=== PATIENT | male | born 1945 | race Caucasian/White ===

== ENCOUNTER 2017-03-26 03:19 | Inpatient (IN) | payer BC ==
[~2017-03-26] VITALS: Ht 180.3 cm; Wt 95.7 kg
[2017-03-26] MEDS ORDERED: ASPIRIN 81 MG TAB.CHEW PO ONE (03:45)
[2017-03-26] MEDS ORDERED: NITROGLYCERIN SUBLINGUAL 0.4 MG BOTTLE OF 25. SL PRN ×2 (03:45→04:45)
[2017-03-26 03:51] LABS: BASO # 0.1 x10^3/uL (0.0-0.2); BASO % 1 % (0-3); EOS # 0.2 x10^3/uL (0.0-0.7); EOS % 3 % (0-3); HEMATOCRIT 47.8 % (39.0-53.0); HEMOGLOBIN 16.1 g/dL (13.0-17.5); LYMPH # 2.3 x10^3/uL (1.0-4.8); LYMPH % 30 % (24-48); MEAN CORPUSCULAR HEMOGLOBIN 30 pg (25-35); MEAN CORPUSCULAR HGB CONC 34 g/dL (31-37); MEAN CORPUSCULAR VOLUME 89 fL (79-100); MONO # 0.5 x10^3/uL (0.0-1.1); MONO % 6 % (0-9); NEUT # 4.5 x10^3uL (1.8-7.7); NEUT % 60 % (31-73); PLATELET COUNT 140 x10^3/uL (140-400); RED BLOOD COUNT 5.35 x10^6/uL (4.30-5.70); WHITE BLOOD COUNT 7.6 x10^3/uL (4.0-11.0)
[2017-03-26 04:02] LABS: ALBUMIN 3.8 g/dL (3.4-5.0); CALCIUM 8.5 mg/dL (8.5-10.1); CREATININE 1.3 mg/dL (0.7-1.3); GFR 54.7; POTASSIUM 3.7 mmol/L (3.5-5.1); TOTAL BILIRUBIN 0.6 mg/dL (0.2-1.0); TOTAL PROTEIN 7.6 g/dL (6.4-8.2)
[2017-03-26] MEDS ORDERED: MORPHINE SULFATE 2 MG/ML DISP.SYRIN. IV PRN (04:45)
[2017-03-26] MEDS ORDERED: ACETAMINOPHEN 325 MG TABLET PO PRN (04:45)
[2017-03-26] MEDS ORDERED: ONDANSETRON PF 4 MG/2 ML VIAL. IV PRN (04:45)
--- NOTE | 2017-03-26 05:13 | PHYS DOC ---
Past History Past Medical History: High Cholesterol, Heart Disease, Hypertension, SC Past Surgical History: Other Alcohol Use: Occasionally Drug Use: None Adult General Chief Complaint Chief Complaint: CHEST PAIN HPI HPI Patient is a 71-year-old gentleman with history significant for hypertension, coronary disease, bypass surgery, asthma who presents here today complaining of midsternal chest pressure that started approximately 1 hour and half prior to arrival to the ER. Patient denies any history of strokes, cancer, diabetes, liver, kidney problems. Patient reports he does have a pacemaker in place. Patient denies any other abdominal or chest surgeries. Patient does not smoke drink or do any drugs. Patient reports he has an adverse reaction to codeine. Patient reports he had no shortness of breath or diaphoresis. Patient had a radiating pain nausea vomiting or diarrhea. Patient had any fevers shakes chills cough cold or rhinorrhea. Patient had a dysuria or frequency or urgency. Patient reports no change with exertion or rest. Patient reports no change with inspiration. 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 Pulido. Patient's physical exam the ED was unremarkable. He was alert awake oriented 3. Heart was regular rate and rhythm. Lungs were clear without any wheezing rales or rhonchi. Patient has no repeatable tenderness to palpation to his anterior chest wall. Review of systems: Constitutional: Denies fever or chills Eyes: Denies change in visual acuity, redness, or eye pain HENT: Denies nasal congestion or sore throat All other review systems are negative except as documented in the history of present illness portion. Physical exam: Constitutional: Well developed, well nourished, no acute distress, non-toxic appearance. HENT: Normocephalic, atraumatic, bilateral external ears normal, nose normal. Eyes: EOMI, conjunctiva normal, no discharge. Neck: Normal range of motion, no tenderness, supple, no stridor. Cardiovascular:Heart rate regular rhythm Lungs & Thorax: Bilateral breath sounds clear to auscultation no respiratory distress Abdomen: Bowel sounds normal, soft, no tenderness, no masses, no pulsatile masses. Skin: Warm, dry, no erythema, no rash. Back: No tenderness, no CVA tenderness. Extremities: No tenderness, no cyanosis, no clubbing, ROM intact, no edema. Neurologic: Alert and oriented X 3, normal motor function, normal sensory function, no focal deficits noted. Psychologic: Affect normal, judgement normal, mood normal. EKG reveals a paced rhythm with nonspecific ST-T wave abnormalities. No old EKGs to compare with. Chest x-ray no infiltrates or effusions. Learning of the left heart border likely secondary to technique. Assessment and plan 71-year-old gentleman who presents here today with nonspecific midsternal chest pressure that woke him up from sleep. Patient's ER workup so far has been unremarkable. Given the patient's significant risk factors of prior coronary disease, bypass surgery, patient will be admitted. Ruled out for cardiac etiology of his discomfort. Patient's pain did improve with the nitroglycerin here in the ED however he reports it did make him feel a little bit flushed. Patient is remained clinically and hemodynamically stable throughout his ED stay. We'll admit to telemetry. Current Medications Current Medications Current Medications Medications (Trade) Dose Ordered Sig/Sherley Start Time Stop Time Status Last Admin Dose Admin Acetaminophen (Tylenol) 650 mg PRN Q4HRS PRN 03/26/17 04:45 03/27/17 04:44 Aspirin (Children'S Aspirin) 324 mg 1X ONCE 03/26/17 03:45 03/26/17 04:09 DC 03/26/17 04:08 324 MG Morphine Sulfate (Morphine 2mg Syringe) 2 mg PRN Q2HR PRN 03/26/17 04:45 03/27/17 04:44 Nitroglycerin (Nitrostat) 0.4 mg PRN Q5MIN PRN 03/26/17 04:45 03/27/17 04:44 Ondansetron HCl (Zofran) 4 mg PRN Q4HRS PRN 03/26/17 04:45 03/27/17 04:44 Allergies Allergies Allergies Coded Allergies Type Severity Reaction Last Updated Verified No Known Allergies Allergy Unknown 03/26/17 Yes Current Patient Data Vital Signs Vital Signs Date Time Temp Pulse Resp B/P (MAP) Pulse Ox O2 Delivery O2 Flow Rate FiO2 03/26/17 04:58 66 20 112/72 (85) 96 Room Air 03/26/17 03:30 98.1 Lab Results Laboratory Tests Test 03/26/17 03:35 White Blood Count 7.6 x10^3/uL (4.0-11.0) Red Blood Count 5.35 x10^6/uL (4.30-5.70) Hemoglobin 16.1 g/dL (13.0-17.5) Hematocrit 47.8 % (39.0-53.0) Mean Corpuscular Volume 89 fL (79-100) Mean Corpuscular Hemoglobin 30 pg (25-35) Mean Corpuscular Hemoglobin Concent 34 g/dL (31-37) Red Cell Distribution Width 15.0 % (11.5-14.5) H Platelet Count 140 x10^3/uL (140-400) Neutrophils (%) (Auto) 60 % (31-73) Lymphocytes (%) (Auto) 30 % (24-48) Monocytes (%) (Auto) 6 % (0-9) Eosinophils (%) (Auto) 3 % (0-3) Basophils (%) (Auto) 1 % (0-3) Neutrophils # (Auto) 4.5 x10^3uL (1.8-7.7) Lymphocytes # (Auto) 2.3 x10^3/uL (1.0-4.8) Monocytes # (Auto) 0.5 x10^3/uL (0.0-1.1) Eosinophils # (Auto) 0.2 x10^3/uL (0.0-0.7) Basophils # (Auto) 0.1 x10^3/uL (0.0-0.2) Sodium Level 140 mmol/L (136-145) Potassium Level 3.7 mmol/L (3.5-5.1) Chloride Level 105 mmol/L (98-107) Carbon Dioxide Level 29 mmol/L (21-32) Anion Gap 6 (6-14) Blood Urea Nitrogen 20 mg/dL (8-26) Creatinine 1.3 mg/dL (0.7-1.3) Estimated GFR (Cockcroft-Gault) 54.7 BUN/Creatinine Ratio 15 (6-20) Glucose Level 128 mg/dL (70-99) H Calcium Level 8.5 mg/dL (8.5-10.1) Total Bilirubin 0.6 mg/dL (0.2-1.0) Aspartate Amino Transferase (AST) 17 U/L (15-37) Alanine Aminotransferase (ALT) 27 U/L (16-63) Alkaline Phosphatase 128 U/L (46-116) H Troponin I Quantitative < 0.017 ng/mL (0-0.055) Total Protein 7.6 g/dL (6.4-8.2) Albumin 3.8 g/dL (3.4-5.0) Albumin/Globulin Ratio 1.0 (1.0-1.7) EKG EKG [] Radiology/Procedures Radiology/Procedures [] Course & Med Decision Making Course & Med Decision Making Pertinent Labs and Imaging studies reviewed. (See chart for details) [] Dragon Disclaimer Dragon Disclaimer This chart was dictated in whole or in part using Voice Recognition software in a busy, high-work load, and often noisy Emergency Department environment. It may contain unintended and wholly unrecognized errors or omissions. Departure Departure: Impression: Primary Impression: Chest pain Additional Impression: Angina pectoris Disposition: ADMITTED INPATIENT Admitting Physician: Sandra Almeida Condition: STABLE Referrals: YAKELIN TIWARI MD (PCP) Problem Qualifiers AGUILAR BATEMAN MD Mar 26, 2017 05:13
--- NOTE | 2017-03-26 05:30 | EKG ---
[address] [address] Test Date: 2017-03-26 Test Time: 03:26:25 Pat Name: KEZIA BUNN Department: Room: 115 A Gender: M Woolen Suiting Shrinker: ESSENCE : 1945 Requested By: AGUILAR BATEMAN Order Number: [id number] Reading MD: Jon Garcia Measurements Intervals [place] Rate: 67 P: -24 TX: 240 QRS: -72 QRSD: 136 T: 41 QT: 424 QTc: 451 Interpretive Statements SINUS RHYTHM PROLONGED TX INTERVAL RBBB SEPTAL INFARCT INFERIOR INFARCT POOR R-WAVE PROGRESSION Electronically Signed On 03-26-2017 17:22:29 CDT by Jon Garcia
[2017-03-26 05:39] VITALS: BP 125/74
--- NOTE | 2017-03-26 07:14 | RAD ---
Portable chest, 03/26/2017: History: Chest pain Comparison is made to a study from 11/19/2009. There has been an interval median sternotomy. There appears to be a cardiac valvular prosthesis in place. A left-sided transvenous pacemaker remains in place with 2 leads extending into the right heart. The heart size and pulmonary vascularity are normal. No pulmonary infiltrates are seen. There is no evidence of pleural fluid. IMPRESSION: No acute cardiopulmonary abnormality is detected.
[2017-03-26 09:14] VITALS: BP 115/65
[2017-03-26] MEDS ORDERED: ALFU10TA3 PO (09:36)
[2017-03-26] MEDS ORDERED: OMEP40CA5 PO (09:36)
[2017-03-26] MEDS ORDERED: ATOR20TA58 PO (09:36)
[2017-03-26] MEDS ORDERED: HYDR12.53 PO (09:36)
[2017-03-26] MEDS ORDERED: ATORVASTATIN CALCIUM 20 MG TABLET PO SCH ×2 (10:00→21:00)
[2017-03-26] MEDS ORDERED: TAMSULOSIN 0.4 MG CAP.ER.24H. PO SCH ×2 (10:00→21:00)
[2017-03-26] MEDS ORDERED: PANTOPRAZOLE 40 MG TABLET. PO SCH ×2 (10:00→21:00)
[2017-03-26] MEDS ORDERED: hydroCHLOROthiazide 12.5 MG CAPSULE PO SCH (10:00)
[2017-03-26 11:45] VITALS: BP 129/83
[2017-03-26 14:51] VITALS: BP 129/78
--- NOTE | 2017-03-27 04:42 | ACF ---
Admission Criteria Forms ANGINA Clinical Indications for Admission to Inpatient Care (Place 'X' for any and all applicable criteria): Admission is indicated for suspected angina (e.g, chest pain pattern, angina- equivalent symptom, or other finding suggesting unstable angina) with ANY ONE of the following(1)(2)(3)(4)(5): [X]I. Angina needing acute intervention as indicated by ALL of the following ( 11)(12): [X]a) Unstable angina is present as indicated by angina that is ANY ONE of the following: [ ]i) New onset [ ]ii) Nocturnal [ ]iii) Prolonged at rest [X]iv) Progressive [X]b) Angina warrants acute intervention as indicated by ANY ONE of the following: [ ]i) Recurrent angina (e.g, not responding as previously to treatment) [ ]ii) Angina at rest or with low-level activities despite initial medical therapy [ ]iii) New or presumably new ST-segment depression on ECG [ ]iv) Signs or symptoms of heart failure (eg, dyspnea, pulmonary edema) [ ]v) New or worsening mitral regurgitation [ ]vi) Hemodynamic instability [ ]vii) Dangerous arrhythmia (eg, sustained ventricular tachycardia) [ ]viii) History of percutaneous coronary intervention within 6 months [X]ix) History of coronary artery bypass graft surgery [ ]x) GELY risk score of 2 or greater[A] [ ]xi) History of Diabetes(14) [ ]xii) High-risk cardiac ischemia findings on noninvasive testing (e.g, echocardiogram, treadmill testing, nuclear scan) [ ]xiii) Chronic renal insufficiency (ie, estimated GFR less than 60 mL/min/1.732m) [ ]xiv) Left ventricular ejection fraction less than 40% [ ]II. Evidence of CA (e.g, cardiac biomarkers positive, ST-segment elevation on ECG). Also use Myocardial Infarction. Extended stay beyond goal length of stay may be needed for (1)(26): [ ]a) Intravascular procedural complications such as acute vessel closure, stent malposition, or vessel dissection(27) [ ]b) Extravascular procedural complications such as retroperitoneal hematoma, pericardial effusion, or cardiac tamponade [ ]c) Entry site complications causing bleeding, hematoma, or distal ischemia and requiring ongoing monitoring, surgical repair, or surgical thrombectomy(28) [ ]d) Heart failure [ ]e) Dangerous arrhythmia [ ]f) Hemodynamic instability with persisting symptoms after intensive medical management, or recurring severe prolonged symptoms [ ]g) Postprocedural myocardial infarction or acute renal failure The original [facility] [employer] content created by [facility] has been revised. The portions of the content which have been revised are identified through the use of italic text or in bold, and [facility] (formerly [facility]) has neither reviewed nor approved the modified material. All other unmodified content is copyright [facility]. Please see references footnoted in the original [facility] edition 2016 Admission Criteria Met?: Yes AMIRAH BRANNON Mar 27, 2017 04:42
--- NOTE | 2017-03-27 10:46 | SSS ---
ADMIT DATE: 03/26/2017 The stay was greater than 8 hours and less than 24 hours and primary care was administered by myself. CONSULTANTS: Dr. Garcia. DISCHARGE DIAGNOSES: 1. Chest pain -- noncardiac, myocardial infarction ruled out. 2. Bioprosthetic aortic valve. 3. Hiatal hernia. 4. Intermittent cigar use. 5. BPH. HISTORY OF PRESENT ILLNESS: This is a 71-year-old male who woke up at 3:00 in the morning on 03/26/2017 complaining of it felt like an animal sitting on his chest. Denied any sweating or radiation. He took 1 nitroglycerin, did give him some relief, but came to the Emergency Room. PAST MEDICAL HISTORY: Negative for coronary artery disease. He had a hiatal hernia, bioprosthetic pig valve. ALLERGIES: None. MEDICATIONS: One baby aspirin a day, on statin, fish oil, and omeprazole for his hiatal hernia. FAMILY HISTORY: Father had coronary artery disease; grandfather, lung cancer; mother is still alive at 86, health is fairly good. HABITS: Cigar every couple of weeks, beer every other day. 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 PAST SURGICAL HISTORY: Aortic valve replaced in 2015 and cardiac catheterization in 2015. REVIEW OF SYSTEMS: As per HPI, otherwise negative. PHYSICAL EXAMINATION: VITAL SIGNS: Blood pressure 129/78, pulse 65, temperature 97.5, respiratory rate 21, pulse ox is 95% on room air. HEENT: The patient's hearing is normal. His eyes are clear. Nose is patent. Throat was clear. NECK: Supple, without adenopathy. There are no carotid bruits. LUNGS: Clear to auscultation. CARDIOVASCULAR: Regular rhythm and rate with crisp S1, S2. ABDOMEN: Soft, nontender. EXTREMITIES: Without edema. LABORATORY DATA: Troponins are negative. Chemistry, essentially normal. EKG per Dr. Garcia. There is no acute ST elevation or depression. ASSESSMENT: As above. PLAN: Follow up with her regular cream dumper, Dr. Wall. ML CARTER DO DR: MALU/dawn JOB#: [id number] / [id number]
--- NOTE | 2017-03-27 13:43 | PDOC ---
PROVIDER NOTE PROVIDER NOTE PROVIDER NOTE Cardiology consultation note Reason for consultation chest pain 71-year-old male presenting with atypical chest pain. She reported some pressure -like sensation at the level of the epigastrium lasting several minutes. There were no significant alleviating or gasping factors. Patient attributed initially to the previous hiatal hernia and after arrival to the ER did not have any significant relief with nitroglycerin. He was previous evaluated with a left heart catheterization approximately 1.5 years ago and was advised that he does not have any significant obstructive disease. He denies any current chest pain, orthopnea, PND or lower extremity edema. He has excellent functional capacity. Past medical history: 1. Bicuspid aortic valve status post replacement 2. Status post pacemaker for sick sinus syndrome 3. Hypertension Social history: Patient is and denies any alcohol, tobacco or illicit drug use. famhx: NC No known drug allergies Review of systems negative for 10 out of 14 systems reviewed unless otherwise mentioned above in history of present illness. HEENT: NC/AT Cardiovascular: Normal heart sounds Respiratory: Normal breath sounds Abdomen: Soft, nontender, normal bowel sounds EXT: No edema. Mental Status: Alert, oriented X 3 VSS Labs Negative enzymes Impression: 1. Atypical chest pain RECS: 1. Patient follows closely with [facility]. His EKG, enzymes and symptoms are of a low risk nature. Furthermore he's had a cardiac catheterization within the last 2 years which was unremarkable. Given this would advise close outpatient follow-up with his primary banana loader through . Thank you for this consultation. ENRIQUE MARTÍNEZ MD Mar 27, 2017 13:43
== END 2017-03-26 17:54 | disposition home or self-care (01) | DRG 206 ==
LOC: ER 03:19 → 1 SOUTH 05:09
PROVIDERS: ADMIT Internal Medicine; ATTEND Internal Medicine
DX: M94.0 Chondrocostal junction syndrome [Tietze] (principal); I10 Essential (primary) hypertension; I25.119 Atherosclerotic heart disease of native coronary artery with unspecified angina pectoris; E78.00 Pure hypercholesterolemia, unspecified; J45.909 Unspecified asthma, uncomplicated; I25.2 Old myocardial infarction; Z95.1 Presence of aortocoronary bypass graft; Z95.0 Presence of cardiac pacemaker; N40.0 Benign prostatic hyperplasia without lower urinary tract symptoms; Z95.2 Presence of prosthetic heart valve
CPT/HCPCS: 36415; 71010; 80053; 82947; 84484; 85025; 93005; 99285-25

== ENCOUNTER 2020-02-05 07:36 | Emergency (ER) | payer MEDICARE ==
[~2020-02-05] VITALS: Ht 180.3 cm; Wt 97.7 kg
[~2020-02-05 07:36] MED LIST: ALFU10TA4 PO; ATOR20TA58 PO; HYDR12.572 PO; OMEP40CA45 PO
[2020-02-05] MEDS ORDERED: GABA300C8 PO (07:57)
[2020-02-05] MEDS ORDERED: NINT150C PO (07:57)
[2020-02-05] MEDS ORDERED: FLUT1BLS10 IH (07:57)
--- NOTE | 2020-02-05 07:59 | PHYS DOC ---
Past History Past Medical History: High Cholesterol Additional Past Medical Histor: Pulmonary fibrosis, Open heart-valve replacement Past Surgical History: Other Additional Past Surgical Histo: valve replacement-bioprosthetic aortic valve Smoking: Quit Greater Than 1 Year Alcohol Use: Occasionally Drug Use: None General Adult EDM: Chief Complaint: CHEST PAIN HPI: HPI: Patient is a 74-year-old male who presents to the emergency department for evaluation. He states he awoke this morning with the discomfort in his lower chest/epigastric region. Described the pain as an achy pain. The pain does not radiate. It is not associated with shortness of breath, and is actually improved by exertion and walking around. He has not had any nausea or vomiting, diaphoresis, cough, or any other associated symptoms. There are no alleviating or exacerbating factors to his symptoms. He does have a history of a valve replacement and a pacemaker, but no history of coronary disease. Review of Systems: Review of Systems: Constitutional: Denies fever or chills Eyes: Denies change in visual acuity HENT: Denies nasal congestion or sore throat Respiratory: Denies cough or shortness of breath Cardiovascular: As per HPI GI: Denies nausea, vomiting, bloody stools or diarrhea : Denies dysuria Musculoskeletal: Denies back pain or joint pain Integument: Denies rash Neurologic: Denies headache, focal weakness or sensory changes Endocrine: Denies polyuria or polydipsia Lymphatic: Denies swollen glands Psychiatric: Denies depression or anxiety Heart Score: HEART Score for Chest Pain: HEART Score for Chest Pain Response (Comments) Value History Slighlty/Non-Suspicious 0 ECG Nonspecific Repolarizatio 1 Age > 65 2 Risk Factors 1 or 2 Risk Factors 1 Troponin < Normal Limit 0 Total 4 Risk Factors: Risk Factors: DM, Current or recent (<one month) smoker, HTN, HLP, family history of CAD, obesity. Risk Scores: Score 0 - 3: 2.5% MACE over next 6 weeks - Discharge Home Score 4 - 6: 20.3% MACE over next 6 weeks - Admit for Clinical Observation Score 7 - 10: 72.7% MACE over next 6 weeks - Early Invasive Strategies Allergies: Allergies: Allergies Coded Allergies Type Severity Reaction Last Updated Verified No Known Allergies Allergy Unknown 03/26/17 Yes Physical Exam: PE: PHYSICAL EXAM: CONSTITUTIONAL: Well developed, well nourished HEAD: normocephalic, atraumatic EENT: PERRL, EOMI. Conjunctivae normal color, sclerae non-icteric; moist mucous membranes. NECK: Supple, non-tender; no meningismus. LUNGS: Lungs CTA, breathing even and unlabored. Normal air movement. HEART: Regular rate and rhythm, no murmur CHEST: No deformity; non-tender ABDOMEN: The abdomen is soft, there is mild diffuse epigastric tenderness to palpation without rebound or guarding, remainder the abdomen is soft and non- tender, no masses or bruits. EXTREM: Normal ROM; no deformity, no calf tenderness. Normal pulses palpable in all extremities. There is no pedal edema. SKIN: No rash; no diaphoresis NEURO: Alert; normal speech and cognition; CN's grossly intact; strength grossly intact without focal deficit. BACK: No CVA TTP. Current Patient Data: Labs: Laboratory Tests Test 02/05/20 07:55 White Blood Count 7.2 x10^3/uL Red Blood Count 5.04 x10^6/uL Hemoglobin 15.5 g/dL Hematocrit 45.9 % Mean Corpuscular Volume 91 fL Mean Corpuscular Hemoglobin 31 pg Mean Corpuscular Hemoglobin Concent 34 g/dL Red Cell Distribution Width 16.3 % Platelet Count 140 x10^3/uL Neutrophils (%) (Auto) 72 % Lymphocytes (%) (Auto) 14 % Monocytes (%) (Auto) 6 % Eosinophils (%) (Auto) 7 % Basophils (%) (Auto) 1 % Neutrophils # (Auto) 5.2 x10^3uL Lymphocytes # (Auto) 1.0 x10^3/uL Monocytes # (Auto) 0.4 x10^3/uL Eosinophils # (Auto) 0.5 x10^3/uL Basophils # (Auto) 0.0 x10^3/uL Sodium Level 138 mmol/L Potassium Level 3.8 mmol/L Chloride Level 103 mmol/L Carbon Dioxide Level 25 mmol/L Anion Gap 10 Blood Urea Nitrogen 23 mg/dL Creatinine 1.3 mg/dL Estimated GFR (Cockcroft-Gault) 54.3 BUN/Creatinine Ratio 18 Glucose Level 144 mg/dL Calcium Level 8.9 mg/dL Total Bilirubin 0.7 mg/dL Aspartate Amino Transf (AST/SGOT) 60 U/L Alanine Aminotransferase (ALT/SGPT) 90 U/L Alkaline Phosphatase 187 U/L Troponin I Quantitative < 0.017 ng/mL SB-[id number]-Type Natriuretic Peptide 119 pg/mL Total Protein 6.8 g/dL Albumin 3.5 g/dL Albumin/Globulin Ratio 1.1 Lipase 97 U/L Current Medications Medications (Trade) Dose Ordered Sig/Sherley Route PRN Reason Start Time Stop Time Status Last Admin Dose Admin Aspirin (Aspirin Chewable) 324 mg 1X ONCE PO 02/05/20 08:00 02/05/20 08:01 DC 02/05/20 07:54 Multi-Ingredient Mouthwash/Gargle (Gi Cocktail) 20 ml 1X ONCE PO 02/05/20 08:00 02/05/20 08:01 DC 02/05/20 08:14 Vital Signs: Vital Signs Date Time Temp Pulse Resp B/P (MAP) Pulse Ox O2 Delivery O2 Flow Rate FiO2 02/05/20 07:42 97.6 70 20 145/88 (107) 96 Room Air EKG: EKG: Probable atrial sensed ventricular paced rhythm at a rate of 84 bpm, left axis deviation, left anterior fascicular block, nonspecific intraventricular conduction delay without acute ischemic ST/T changes. There is T wave inversion in the lateral limb leads which is accentuated compared to the patient's prior EKG. Radiology/Procedures: Radiology/Procedures: PROCEDURE: PORTABLE CHEST 1V AP portable chest radiograph 02/05/2020 Clinical History: Chest pain. An AP erect portable digital radiograph of the chest was obtained. Comparison study is dated 03/26/2017. The patient is post cardiac valve replacement. A left-sided pacemaker is unchanged. The cardiac silhouette is mildly enlarged. The thoracic aorta is tortuous. No acute pulmonary infiltrate is seen. No pneumothorax or pleural effusion is noted. Degenerative changes are seen involving the thoracic spine along with both shoulders. Impression: No acute abnormality is seen.[] PROCEDURE: ABDOMEN LTD Examination: ABDOMEN LTD History: Reason: upper abd pain, LFT elevation, eval GB Comparison/Correlation: None Findings: Right upper quadrant ultrasound exam was performed. Exam is somewhat limited due to patient body habitus. Diffuse fatty infiltration of the liver is present. Portal venous flow is normal. Liver length is 16.8 cm. At least several calculi of varying sizes are present in the gallbladder. There is no pericholecystic fluid. There is no gallbladder wall thickening. Right kidney measures 11.37 x 4 cm x 5.20. No right hydronephrosis. Pancreas is obscured by bowel gas. Inferior vena cava is partially visualized and unremarkable. Common bile duct could not be delineated due to overlying bowel gas. Impression: Cholelithiasis. No findings of acute inflammation or biliary dilatation. Fatty infiltration of the liver. Course & Med Decision Making: Course & Med Decision Making Pertinent Labs and Imaging studies reviewed. (See chart for details) [] 10:15 AM: The patient's condition remained stable. He is feeling significantly better at this time. I had an extensive discussion with the patient about the limitations of ER cardiac evaluation in definitively ruling out acute coronary syndrome. We discussed limitation of the ER evaluation and a singe ED troponin in r/o AMI, and the risks involved in missed diagnosis of acute coronary syndrome including or permanent debility. I recommended overnight observation for further formal cardiac evaluation to rule out acute coronary syndrome. After expressing understanding of the limitations of ER cardiac evaluation, as well as the risks of missed diagnosis, the patient declined further cardiac evaluation at this time. The patient was mentally competent, and given opportunity to ask questions about the diagnosis and recommended plan of care. I stressed the importance of outpatient follow-up, and returning to the emergency department for new or worsening symptoms, or if the patient is agreeable to undergo further cardiac evaluation. Dragon Disclaimer: Dragon Disclaimer: This electronic medical record was generated, in whole or in part, using a voice recognition dictation system. Departure Departure: Impression: Primary Impression: Atypical chest pain Disposition: HOME/RESIDENCE PRIOR TO ADM Condition: STABLE Referrals: YAKELIN TIWARI MD (PCP) Patient Instructions: Chest Pain (Nonspecific), Cholelithiasis Justification of Admission: Justification of Admission: Justification of Admission Dx: N/A ALMAZ LA MD Feb 05, 2020 07:59
[2020-02-05] MEDS ORDERED: ASPIRIN CHEWABLE 81 MG TABLET. PO ONE (08:00)
[2020-02-05] MEDS ORDERED: LIDO:MAALOX 1:1 20 ML SINGLE DOSE. PO ONE (08:00)
[2020-02-05 08:09] VITALS: BP 145/85
[2020-02-05 08:12] LABS: BASO % 1 % (0-3); EOS # 0.5 x10^3/uL (0.0-0.7); EOS % 7 % (0-3); HEMATOCRIT 45.9 % (39.0-53.0); HEMOGLOBIN 15.5 g/dL (13.0-17.5); LYMPH % 14 % (24-48); MEAN CORPUSCULAR HEMOGLOBIN 31 pg (25-35); MEAN CORPUSCULAR HGB CONC 34 g/dL (31-37); MEAN CORPUSCULAR VOLUME 91 fL (79-100); MONO # 0.4 x10^3/uL (0.0-1.1); MONO % 6 % (0-9); NEUT # 5.2 x10^3uL (1.8-7.7); NEUT % 72 % (31-73); PLATELET COUNT 140 x10^3/uL (140-400); RED BLOOD COUNT 5.04 x10^6/uL (4.30-5.70); RED CELL DISTRIBUTION WIDTH 16.3 % (11.5-14.5); WHITE BLOOD COUNT 7.2 x10^3/uL (4.0-11.0)
--- NOTE | 2020-02-05 08:16 | RAD ---
AP portable chest radiograph 02/05/2020 Clinical History: Chest pain. An AP erect portable digital radiograph of the chest was obtained. Comparison study is dated 03/26/2017. The patient is post cardiac valve replacement. A left-sided pacemaker is unchanged. The cardiac silhouette is mildly enlarged. The thoracic aorta is tortuous. No acute pulmonary infiltrate is seen. No pneumothorax or pleural effusion is noted. Degenerative changes are seen involving the thoracic spine along with both shoulders. Impression: No acute abnormality is seen. Electronically signed by: Joo Trent MD (02/05/2020 8:13 AM) [id number]
[2020-02-05 08:22] LABS: CALCIUM 8.9 mg/dL (8.5-10.1); CREATININE 1.3 mg/dL (0.7-1.3); GFR 54.3; POTASSIUM 3.8 mmol/L (3.5-5.1)
[2020-02-05 08:34] LABS: ALBUMIN 3.5 g/dL (3.4-5.0); ALBUMIN/GLOBULIN RATIO 1.1 (1.0-1.7); TOTAL BILIRUBIN 0.7 mg/dL (0.2-1.0); TOTAL PROTEIN 6.8 g/dL (6.4-8.2)
--- NOTE | 2020-02-05 10:08 | RAD ---
Examination: ABDOMEN LTD History: Reason: upper abd pain, LFT elevation, eval GB Comparison/Correlation: None Findings: Right upper quadrant ultrasound exam was performed. Exam is somewhat limited due to patient body habitus. Diffuse fatty infiltration of the liver is present. Portal venous flow is normal. Liver length is 16.8 cm. At least several calculi of varying sizes are present in the gallbladder. There is no pericholecystic fluid. There is no gallbladder wall thickening. Right kidney measures 11.37 x 4 cm x 5.20. No right hydronephrosis. Pancreas is obscured by bowel gas. Inferior vena cava is partially visualized and unremarkable. Common bile duct could not be delineated due to overlying bowel gas. Impression: Cholelithiasis. No findings of acute inflammation or biliary dilatation. Fatty infiltration of the liver. Electronically signed by: Kedar Weber MD (02/05/2020 10:05 AM) [id number]
--- NOTE | 2020-02-05 12:12 | EKG ---
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
== END 2020-02-05 10:30 | disposition home or self-care (01) ==
LOC: ER 07:36
DX: R07.89 Other chest pain (principal); R10.13 Epigastric pain; E78.00 Pure hypercholesterolemia, unspecified; Z87.891 Personal history of nicotine dependence; Z95.0 Presence of cardiac pacemaker
CPT/HCPCS: 36415; 71045; 76705; 80053; 83690; 83880; 84484; 85025; 93005; 99285

== ENCOUNTER 2020-02-14 07:17 | Emergency (ER) | payer MEDICARE ==
[~2020-02-14] VITALS: Ht 180.3 cm; Wt 97.7 kg
[~2020-02-14 07:17] MED LIST changes: +FLUT1BLS10 IH; +GABA300C8 PO; +NINT150C PO
[2020-02-14 07:28] VITALS: BP 156/94
--- NOTE | 2020-02-14 07:42 | PHYS DOC ---
Past History Past Medical History: High Cholesterol Additional Past Medical Histor: Pulmonary fibrosis, Open heart-valve replacement Past Surgical History: Other Additional Past Surgical Histo: valve replacement-bioprosthetic aortic valve Smoking: Quit Greater Than 1 Year Alcohol Use: None Drug Use: None General Adult EDM: Chief Complaint: ABDOMINAL PAIN HPI: HPI: Patient is a 74-year-old male who presented to ER today for evaluation of right upper quad abdominal pain started at 2 AM this morning, woke him up from sleep. Patient was seen here last week for the same problem, ultrasound of his Abdomen shown gallstones. Patient denies any chest pain, no nausea vomiting, no trouble breathing, no cough or fever. Patient do have history of coronary disease, had open heart surgery, had aortic valve replaced. Patient is on aspirin a day. Patient denies any recent travel or operation, denies any exposure to anybody who tested positive for COVID-19. Review of Systems: Review of Systems: Constitutional: Denies fever or chills Eyes: Denies change in visual acuity HENT: Denies nasal congestion or sore throat Respiratory: Denies cough or shortness of breath Cardiovascular: Denies chest pain or edema GI: Positive for abdominal pain, negative for nausea, vomiting, bloody stools or diarrhea : Denies dysuria Musculoskeletal: Denies back pain or joint pain Integument: Denies rash Neurologic: Denies headache, focal weakness or sensory changes Endocrine: Denies polyuria or polydipsia Lymphatic: Denies swollen glands Psychiatric: Denies depression or anxiety Heart Score: Risk Factors: Risk Factors: DM, Current or recent (<one month) smoker, HTN, HLP, family history of CAD, obesity. Risk Scores: Score 0 - 3: 2.5% MACE over next 6 weeks - Discharge Home Score 4 - 6: 20.3% MACE over next 6 weeks - Admit for Clinical Observation Score 7 - 10: 72.7% MACE over next 6 weeks - Early Invasive Strategies Current Medications: Current Meds: Current Medications Medications (Trade) Dose Ordered Sig/Sherley Start Time Stop Time Status Last Admin Dose Admin Fentanyl Citrate (Fentanyl 2ml Vial) 75 mcg 1X ONCE 02/14/20 10:15 02/14/20 10:16 DC 02/14/20 10:41 75 MCG Iohexol (Omnipaque 300 Mg/ml) 75 ml 1X ONCE 02/14/20 10:15 02/14/20 10:18 DC 02/14/20 10:32 75 ML Morphine Sulfate (Morphine 4mg Syringe) 4 mg 1X ONCE 02/14/20 08:30 02/14/20 08:33 DC 02/14/20 08:40 4 MG Ondansetron HCl (Zofran) 4 mg 1X ONCE 02/14/20 07:45 02/14/20 07:54 DC 02/14/20 07:52 4 MG Piperacillin Sod/ Tazobactam Sod 3.375 gm/Sodium Chloride 50 ml @ 100 mls/hr 1X ONCE 02/14/20 11:15 02/14/20 11:44 Allergies: Allergies: Allergies Coded Allergies Type Severity Reaction Last Updated Verified codeine Allergy Unknown 02/05/20 Yes Physical Exam: PE: Constitutional: Well developed, well nourished, no acute distress, non-toxic appearance. [] HENT: Normocephalic, atraumatic, bilateral external ears normal, oropharynx moist, no oral exudates, nose normal. [] Eyes: PERRLA, EOMI, conjunctiva normal, no discharge. [] Neck: Normal range of motion, no tenderness, supple, no stridor. [] Cardiovascular:Heart rate regular rhythm, no murmur [] Lungs & Thorax: Bilateral breath sounds clear to auscultation [] Abdomen: Bowel sounds normal, soft, there is right upper quadrant tenderness, no masses, no pulsatile masses. [] Skin: Warm, dry, no erythema, no rash. [] Back: No tenderness, no CVA tenderness. [] Extremities: No tenderness, no cyanosis, no clubbing, ROM intact, no edema. [] Neurologic: Alert and oriented X 3, normal motor function, normal sensory function, no focal deficits noted. [] Psychologic: Affect normal, judgement normal, mood normal. [] Current Patient Data: Labs: Laboratory Tests Test 02/14/20 07:23 White Blood Count 9.4 x10^3/uL Red Blood Count 5.43 x10^6/uL Hemoglobin 16.7 g/dL Hematocrit 48.9 % Mean Corpuscular Volume 90 fL Mean Corpuscular Hemoglobin 31 pg Mean Corpuscular Hemoglobin Concent 34 g/dL Red Cell Distribution Width 16.1 % Platelet Count 163 x10^3/uL Neutrophils (%) (Auto) 86 % Lymphocytes (%) (Auto) 10 % Monocytes (%) (Auto) 3 % Eosinophils (%) (Auto) 1 % Basophils (%) (Auto) 1 % Neutrophils # (Auto) 8.0 x10^3uL Lymphocytes # (Auto) 0.9 x10^3/uL Monocytes # (Auto) 0.3 x10^3/uL Eosinophils # (Auto) 0.1 x10^3/uL Basophils # (Auto) 0.0 x10^3/uL Prothrombin Time 9.6 SEC Prothromb Time International Ratio 0.9 Activated Partial Thromboplast Time 30 SEC Sodium Level 136 mmol/L Potassium Level 3.6 mmol/L Chloride Level 100 mmol/L Carbon Dioxide Level 25 mmol/L Anion Gap 11 Blood Urea Nitrogen 17 mg/dL Creatinine 1.3 mg/dL Estimated GFR (Cockcroft-Gault) 54.3 BUN/Creatinine Ratio 13 Glucose Level 159 mg/dL Calcium Level 9.1 mg/dL Magnesium Level 2.0 mg/dL Total Bilirubin 0.9 mg/dL Aspartate Amino Transf (AST/SGOT) 18 U/L Alanine Aminotransferase (ALT/SGPT) 36 U/L Alkaline Phosphatase 151 U/L Troponin I Quantitative < 0.017 ng/mL KX-Tsf-T-Type Natriuretic Peptide 83 pg/mL Total Protein 7.9 g/dL Albumin 3.8 g/dL Albumin/Globulin Ratio 0.9 Lipase 63 U/L Current Medications Medications (Trade) Dose Ordered Sig/Sherley Route PRN Reason Start Time Stop Time Status Last Admin Dose Admin Fentanyl Citrate (Fentanyl 2ml Vial) 75 mcg 1X ONCE IVP 02/14/20 07:45 02/14/20 07:54 DC 02/14/20 07:52 75 MCG Ondansetron HCl (Zofran) 4 mg 1X ONCE IVP 02/14/20 07:45 02/14/20 07:54 DC 02/14/20 07:52 4 MG Morphine Sulfate (Morphine 4mg Syringe) 4 mg 1X ONCE IV 02/14/20 08:30 02/14/20 08:33 DC 02/14/20 08:40 4 MG Fentanyl Citrate (Fentanyl 2ml Vial) 75 mcg 1X ONCE IVP 02/14/20 10:15 02/14/20 10:16 DC 02/14/20 10:41 75 MCG Iohexol (Omnipaque 300 Mg/ml) 75 ml 1X ONCE IV 02/14/20 10:15 02/14/20 10:18 DC 02/14/20 10:32 75 ML Piperacillin Sod/ Tazobactam Sod 3.375 gm/Sodium Chloride 50 ml @ 100 mls/hr 1X ONCE IV 02/14/20 11:15 02/14/20 11:44 Vital Signs: Vital Signs Date Time Temp Pulse Resp B/P (MAP) Pulse Ox O2 Delivery O2 Flow Rate FiO2 02/14/20 07:28 97.8 82 26 156/94 (114 93 EKG: EKG: EKG was done at 724, heart rate of 63 bpm, sinus rhythm, no ST segment elevation. Compared to EKG done on February 05, 2020, no changes. Radiology/Procedures: Radiology/Procedures: [][address] [address] IMAGING REPORT Signed PATIENT: KEZIA BUNN ACCOUNT: [id number] : 1945 LOCATION: ER AGE: 74 SEX: M EXAM STATUS: REG ER ORD. PHYSICIAN: CHRIST MCKEON DO REASON: abdominal pain PROCEDURE: CT ABD PELV W/ IV CONTRST ONLY EXAM: CT Abdomen and Pelvis with IV contrast INDICATION: Reason: abdominal pain, right-sided to the midsection for one day. TECHNIQUE: Multi-detector row CT images were acquired from the lung bases through the abdomen and pelvis with the use of IV contrast. Sagittal and coronal images were acquired from the transaxial data. All CT scans performed at this facility utilize dose optimization techniques as appropriate to the exam, including the following: Automated exposure control and adjustment of the mA and/or KV according to patient size (this includes techniques or standardized protocols for targeted exams where dose is indication/reason for exam). IV CONTRAST: Administered ORAL CONTRAST: Not administered COMPARISON: Limited abdominal ultrasound 02/14/2020 FINDINGS: LOWER CHEST: Bibasilar fibrotic changes, aortic valve prosthesis, and right heart pacemaker leads. LIVER: Multiple ovoid hypodense lesions, statistically likely to be cysts but incompletely characterized on this single phase study. Largest measures 1.3 cm in hepatic segment 2. BILIARY SYSTEM: Gallbladder contains multiple gallstones. It is distended to 4.3 cm diameter and at least a 9 cm length. There is subtle indistinctness to the medial wall of the gallbladder body that could represent early pericholecystic soft tissue stranding without a fluid collection. Bile ducts are not dilated. PANCREAS: Unremarkable SPLEEN: Unremarkable ADRENALS: Unremarkable KIDNEYS & URETERS: Unremarkable BLADDER: Unremarkable REPRODUCTIVE ORGANS: Enlarged prostate measuring 5.8 cm in transverse diameter. GASTROINTESTINAL: The stomach, small bowel, and colon are unremarkable. The appendix is truncated and is otherwise unremarkable.. MESENTERY/PERITONEUM/RETROPERITONEUM: Unremarkable VASCULAR: Duplicated IVC. LYMPH NODES: No adenopathy OSSEOUS & SOFT TISSUES: Unremarkable IMPRESSION: Cholelithiasis with gallbladder distention and subtle haziness to the gallbladder wall that could reflect early changes of acute cholecystitis. Correlate clinically. No biliary obstruction. No other findings in the abdomen or pelvis to explain right upper quadrant abdominal pain. Electronically signed by: Juan Jose Hernadez MD (02/14/2020 10:55 AM) [id number] DICTATED AND SIGNED BY: JUAN JOSE HERNADEZ MD DATE: 02/14/20 1055 CC: YAKELIN TIWARI MD; CHRIST MCKEON DO ~ [place] [address] IMAGING REPORT Signed PATIENT: KEZIA BUNN ACCOUNT: [id number] : 1945 LOCATION: ER AGE: 74 SEX: M EXAM STATUS: REG ER ORD. PHYSICIAN: CHRIST MCKEON DO REASON: RUQ abdominal pain PROCEDURE: ABDOMEN LTD Abdominal ultrasound 02/14/2020. Reason for exam: Right upper quadrant pain with nausea and vomiting. FINDINGS: No focal liver lesion is seen. Echogenicity suggests diffuse fatty infiltration. The biliary tree does not appear dilated. The gallbladder is fairly well distended. Multiple stones are seen. There is no apparent gallbladder wall thickening or surrounding fluid. Right kidney and visualized portions of the pancreas and abdominal aorta appear normal. Much of the midline was obscured by bowel gas. IMPRESSION: Cholelithiasis. Electronically signed by: Charlette Diehl Jr., MD (02/14/2020 9:51 AM) [id number] DICTATED AND SIGNED BY: CHARLETTE DIEHL Jr, MD DATE: 02/14/20 0951 CC: YAKELIN TIWARI MD; CHRIST MCKEON DO ~ Course & Med Decision Making: Course & Med Decision Making Pertinent Labs and Imaging studies reviewed. (See chart for details) Patient is a 74-year-old male who was evaluated in the ER due to abdominal pain, ultrasound and CT scan shown multiple gallstones. Patient continued to have abdominal pain despite pain medication. Patient will need to be admitted to hospital for pain control and to be evaluated by general surgeon. Patient requested to be transferred to [facility] because his doctors over there. Contact [facility] transfer center at 11:15 AM. Regina Disclaimer: Regina Disclaimer: This electronic medical record was generated, in whole or in part, using a voice recognition dictation system. Departure Departure: Impression: Primary Impression: Biliary colic Disposition: [facility] (transferred to [facility], ACCEPTED BY DR. PERRY) Condition: STABLE Referrals: YAKELIN TIWARI MD (PCP) Justification of Admission: Justification of Admission: Justification of Admission Dx: N/A CHRIST MCKEON DO Feb 14, 2020 07:42
[2020-02-14] MEDS ORDERED: ONDANSETRON PF 4 MG/2 ML VIAL. IVP ONE (07:45)
[2020-02-14 07:58] LABS: BASO % 1 % (0-3); EOS # 0.1 x10^3/uL (0.0-0.7); EOS % 1 % (0-3); HEMATOCRIT 48.9 % (39.0-53.0); HEMOGLOBIN 16.7 g/dL (13.0-17.5); LYMPH # 0.9 x10^3/uL (1.0-4.8); LYMPH % 10 % (24-48); MEAN CORPUSCULAR HEMOGLOBIN 31 pg (25-35); MEAN CORPUSCULAR HGB CONC 34 g/dL (31-37); MEAN CORPUSCULAR VOLUME 90 fL (79-100); MONO # 0.3 x10^3/uL (0.0-1.1); MONO % 3 % (0-9); NEUT % 86 % (31-73); PLATELET COUNT 163 x10^3/uL (140-400); RED BLOOD COUNT 5.43 x10^6/uL (4.30-5.70); RED CELL DISTRIBUTION WIDTH 16.1 % (11.5-14.5); WHITE BLOOD COUNT 9.4 x10^3/uL (4.0-11.0)
[2020-02-14 08:01] LABS: CALCIUM 9.1 mg/dL (8.5-10.1); CREATININE 1.3 mg/dL (0.7-1.3); GFR 54.3; POTASSIUM 3.6 mmol/L (3.5-5.1)
[2020-02-14 08:13] LABS: ALBUMIN 3.8 g/dL (3.4-5.0); ALBUMIN/GLOBULIN RATIO 0.9 (1.0-1.7); TOTAL BILIRUBIN 0.9 mg/dL (0.2-1.0); TOTAL PROTEIN 7.9 g/dL (6.4-8.2)
[2020-02-14] MEDS ORDERED: MORPHINE SULFATE 4 MG/ML DISP.SYRIN. IV ONE (08:30)
--- NOTE | 2020-02-14 09:54 | RAD ---
Abdominal ultrasound 02/14/2020. Reason for exam: Right upper quadrant pain with nausea and vomiting. FINDINGS: No focal liver lesion is seen. Echogenicity suggests diffuse fatty infiltration. The biliary tree does not appear dilated. The gallbladder is fairly well distended. Multiple stones are seen. There is no apparent gallbladder wall thickening or surrounding fluid. Right kidney and visualized portions of the pancreas and abdominal aorta appear normal. Much of the midline was obscured by bowel gas. IMPRESSION: Cholelithiasis. Electronically signed by: Carlos Diehl Jr., MD (02/14/2020 9:51 AM) [id number]
[2020-02-14] MEDS ORDERED: IOHEXOL 300 MG/ML 75 ML VIAL. IV ONE (10:15)
--- NOTE | 2020-02-14 10:58 | RAD ---
EXAM: CT Abdomen and Pelvis with IV contrast INDICATION: Reason: abdominal pain, right-sided to the midsection for one day. TECHNIQUE: Multi-detector row CT images were acquired from the lung bases through the abdomen and pelvis with the use of IV contrast. Sagittal and coronal images were acquired from the transaxial data. All CT scans performed at this facility utilize dose optimization techniques as appropriate to the exam, including the following: Automated exposure control and adjustment of the mA and/or KV according to patient size (this includes techniques or standardized protocols for targeted exams where dose is indication/reason for exam). IV CONTRAST: Administered ORAL CONTRAST: Not administered COMPARISON: Limited abdominal ultrasound 02/14/2020 FINDINGS: LOWER CHEST: Bibasilar fibrotic changes, aortic valve prosthesis, and right heart pacemaker leads. LIVER: Multiple ovoid hypodense lesions, statistically likely to be cysts but incompletely characterized on this single phase study. Largest measures 1.3 cm in hepatic segment 2. BILIARY SYSTEM: Gallbladder contains multiple gallstones. It is distended to 4.3 cm diameter and at least a 9 cm length. There is subtle indistinctness to the medial wall of the gallbladder body that could represent early pericholecystic soft tissue stranding without a fluid collection. Bile ducts are not dilated. PANCREAS: Unremarkable SPLEEN: Unremarkable ADRENALS: Unremarkable KIDNEYS & URETERS: Unremarkable BLADDER: Unremarkable REPRODUCTIVE ORGANS: Enlarged prostate measuring 5.8 cm in transverse diameter. GASTROINTESTINAL: The stomach, small bowel, and colon are unremarkable. The appendix is truncated and is otherwise unremarkable.. MESENTERY/PERITONEUM/RETROPERITONEUM: Unremarkable VASCULAR: Duplicated IVC. LYMPH NODES: No adenopathy OSSEOUS & SOFT TISSUES: Unremarkable IMPRESSION: Cholelithiasis with gallbladder distention and subtle haziness to the gallbladder wall that could reflect early changes of acute cholecystitis. Correlate clinically. No biliary obstruction. No other findings in the abdomen or pelvis to explain right upper quadrant abdominal pain. Electronically signed by: Javy Hernadez MD (02/14/2020 10:55 AM) [id number]
[2020-02-14] MEDS ORDERED: PIPERACILLIN/TAZOBACTAM 3.375 GM in IV NORMAL SALINE 50ML 50 ML IV ONE (11:15)
[2020-02-14] MEDS ORDERED: PIPERACILLIN/TAZOBACTAM 3.375 GM VIAL IV ONE (11:31)
[2020-02-14] MEDS ORDERED: IV NORMAL SALINE 50ML 50 ML ONE (11:31)
--- NOTE | 2020-02-14 12:37 | EKG ---
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
== END 2020-02-14 13:56 | disposition short-term general hospital (02) ==
LOC: ER 07:17
DX: K80.50 Calculus of bile duct without cholangitis or cholecystitis without obstruction (principal); E78.00 Pure hypercholesterolemia, unspecified; Z87.891 Personal history of nicotine dependence; Z88.5 Allergy status to narcotic agent
CPT/HCPCS: 36415; 74177; 76705; 80053; 83690; 83735; 83880; 84484; 85025; 85610; 85730; 93005; 96365; 96375; 96376; 99285; J2270; J2405; J2543; J3010; Q9967

== ENCOUNTER → 2020-08-30 | Outpatient (CLI) | payer MEDICARE ==
--- NOTE | 2020-08-30 16:52 | RAD ---
PA and lateral chest radiographs 08/30/2020 CLINICAL HISTORY: History of chest pain. History of heart disease. PA and lateral digital radiographs of chest were obtained. Comparison study is dated 02/05/2020. The patient is post cardiac valve replacement. A left-sided pacemaker is unchanged position. The card iac silhouette is mildly enlarged. The thoracic aorta is tortuous. Prominence of the interstitial mar kings and pulmonary vasculature within both lungs is seen which may reflect mild CHF. No pneumothorax or pleural effusion is noted. There is diffuse osteopenia the visualized bony structures. Degenerati ve changes are seen involving the thoracic spine. IMPRESSION: Findings are seen suggesting CHF. Electronically signed by: Joo Trent MD (08/30/2020 4:50 PM) [id number]
== END ==
LOC: DXRAD 15:10
PROVIDERS: ATTEND Specialist
DX: R07.82 Intercostal pain (principal); M85.88 Other specified disorders of bone density and structure, other site; I51.7 Cardiomegaly; M47.814 Spondylosis without myelopathy or radiculopathy, thoracic region; Q25.46 Tortuous aortic arch
CPT/HCPCS: 71046

== ENCOUNTER → 2020-12-16 | Day surgery (SDC) | payer MEDICARE ==
[~2020-12-16] MED LIST changes: +ACETAMINOPHEN 500 MG TABLET PO PRN; +BALANCED SALT IRRIG SOLN NO.2 500 ML IO ONE; +BENZONATATE 100 MG CAPSULE. PO PRN; +BRIMONIDINE 0.2% OPHTH SOLUTION 5ML BOTTLE. OD ONE; +CEFUROXIME OPHTH 4 MG/0.4 ML SYRINGE. OD ONE; +CHONDROIT-SOD-HYALURONATE KIT. OD ONE; +IBUPROFEN 200 MG TABLET PO PRN; +IPRATRPIUM/ALBUTEROL 0.5/2.5MG 3 ML NEBU. NEB PRN; +IV RINGERS SOLUTION,LACTATED 1,000 ML IV SCH; +LIDO/EPI IN BSS OPHTH 2.7 ML SYRINGE. OD ONE; +LIDOCAINE 2% JELLY 6ML IN APPLICATOR. ONE; +MIDAZOLAM HCL PF 2 MG/2 ML VIAL. IV ONE; +MIDAZOLAM HCL PF 2 MG/2 ML VIAL. ONE; +ONDANSETRON PF 4 MG/2 ML VIAL. IV PRN; +PHENYLEPHRINE 10% OPHTH SOLUTION 5ML BOTTLE. OD PRN; +POVIDONE-IODINE 5% OPHTH SOLUTION 30ML BOTTLE. OD ONE; +POVIDONE-IODINE 5% OPHTH SOLUTION 30ML BOTTLE. OD PRN; +PROPARACAINE 0.5% OPHTH SOLUTION 15ML BOTTLE. OD ONE; +PROPARACAINE 0.5% OPHTH SOLUTION 15ML BOTTLE. OD PRN; +prednisoLONE ACETATE 1% OPHTH SUSPENSION 5ML BOTTLE. OD ONE
[2020-12-16] MEDS: TROPICAMIDE 1% OPHTH SOLUTION 15ML BOTTLE. OD SCH ×3 (10:21→10:32)
[2020-12-16] MEDS: PHENYLEPHRINE 2.5% OPHTH SOLUTION 2ML BOTTLE. OD SCH ×3 (10:21→10:32)
[2020-12-16] MEDS: KETOROLAC TROMETHAMINE 0.5% OPHTH SOLUTION BOTTLE. OD SCH ×2 (10:21→10:27)
[2020-12-16] MEDS: TOBRAMYCIN 0.3% OPHTH SOLUTION 5ML BOTTLE. OD SCH ×2 (10:21→10:27)
--- NOTE | 2020-12-16 11:48 | PDOC4 ---
SURGEON: Bismark Finnegan MD Date of Procedure: 12/16/20 PREOP Diagnosis Visually significant cataract: Right Eye OD POSTOP Diagnosis Same PROCEDURE: Phaco w/ posterior chamber IOL: Right Eye OD ANESTHESIA Deep forniceal periocular 2% Lidocaine jelly Aisha/retro bulbar block with 2% Lidocaine with 0.5% Marcaine DESCRIPTION OF PROCEDURE The risks, benefits, and alternatives were discussed with the patient who elected to proceed. Informed consent was obtained in writing and placed in the chart After anesthetizing the eye topically, the patient was taken to the operating room, and the operative eye was prepped and draped in the usual sterile fashion for ocular surgery. A wire lid speculum was placed. A 1-mm clear corneal paracentesis incision was created with the side-port blade at a position three o'clock hours clockwise from the temporal cornea. Then, 1% non-preserved Lidocaine with epinephrine was injected into the anterior chamber followed by viscoelastic. Cotton-tipped applicators were used to stabilize the globe, and a 2.4 mm keratome was used to create a self-sealing incision in clear cornea at the temporal limbus. The Utrata forceps were used to create a continuous curvilinear capsulorrhexis. Balanced saline solution was injected via cannula beneath the capsulorrhexis edge to hydrodissect the lens nucleus and cortex from the lens capsule. The phacoemulsification handpiece and a chopping instrument were then used to remove the lens nucleus. The remaining epinuclear material and cortex were removed with the irrigation/aspiration handpiece. V iscoelastic was used to re-inflate the lens capsule, and the intraocular lens was injected directly into the capsular bag. The corneal wound edges were hydrated with balanced salt solution on a cannula and the irrigation/aspiration handpiece was used to extract the remaining viscoelastic. Cefuroxime 0.1mg/ml / Vigamox 0.5% was injected into the anterior chamber intracamerally. The wounds were inspected and found to be watertight at an appropriate intraocular pressure. Topical antibiotic drops were placed on the corneal surface. LRI: No If Yes, Number [] [place] [] Length [] degrees Depth [] microns Incision [place]: 180 Toric Lens [place] [] Patch/shield with Maxitrol/Tobradex/Erythromycin ointment: Yes No Co-managed patients/postop examination stable for co-management with referring doctor. EBL EBL: None SPECIMANS COLLECTED Specimens Collected: None BISMARK FINNEGAN MD December 16, 2020 11:48
[2020-12-16 11:58] VITALS: BP 125/73
== END | disposition home or self-care (01) ==
LOC: SURG 09:47
PROVIDERS: ATTEND Ophthalmology
DX: H25.11 Age-related nuclear cataract, right eye (principal); J45.909 Unspecified asthma, uncomplicated; E78.00 Pure hypercholesterolemia, unspecified; I25.2 Old myocardial infarction; I10 Essential (primary) hypertension; I25.119 Atherosclerotic heart disease of native coronary artery with unspecified angina pectoris; Z79.899 Other long term (current) drug therapy; Z98.890 Other specified postprocedural states; Z88.5 Allergy status to narcotic agent; Z72.89 Other problems related to lifestyle; Z95.2 Presence of prosthetic heart valve; Z87.891 Personal history of nicotine dependence; Z95.0 Presence of cardiac pacemaker; Z95.1 Presence of aortocoronary bypass graft
CPT/HCPCS: 66984; J2250; V2632